=== PATIENT | female | born 2000 | race Caucasian/White ===

== ENCOUNTER 2018-08-29 13:32 | Emergency (ER) | payer MEDICAID, SELFPAY ==
--- NOTE | 2018-08-29 13:41 | W.ED.GENAD ---
Discharge Plan Disposition Patient Disposition: HOME Condition: Stable Discharge Details Chief Complaint: RashLesion Clinical Impression: Blister (nonthermal), right foot, initial encounter Reason For Visit: blister / open sore ED Provider: Ivy Ashford Home Meds and New Rx's Prescriptions: New ibuprofen 600 mg tablet 600 mg PO QID PRN (Reason: pain) Qty: 20 RF: 0 Continue clonidine HCl 0.1 mg Tablet 0.1 mg PO HS RF: 0 norethindrone-e.estradiol-iron [Junel FE 1.5/30 (28)] 1.5 mg-30 mcg (21)/75 mg (7) Tablet RF: 0 sertraline 100 mg Tablet 200 mg PO DAILY RF: 0 trazodone 100 mg Tablet 100 mg PO HS RF: 0 dextroamphetamine-amphetamine [Adderall] 20 mg Tablet 20 mg PO DAILY RF: 0 omeprazole 20 mg Capsule,Delayed Release(Dr/Ec) 20 mg PO DAILY RF: 0 Discharge Instructions Instructions: Blister (ED) Additional Instructions: Keep open area clean, dry, covered. Tylenol and/or Motrin as needed for discomfort. Monitor for signs of infection including redness, warmth, drainage, fevers/chills, increased pain. If these or other new/worsening symptoms arise please seek care urgently once again. If pain persists over the next week please follow up with primary care provider. Medical Decision Making Patient is a 18 year old female, accompanied by friend, with c/c of blister to the plantar aspect of the right foot. States that she sustained blister while in boots yesterday. States that this subsequently opened. She reports that she washed the open area with alcohol. Has bandaid over the area. States that since opening, the pain has increased, particularly when she is ambulatory. Is concerned for infection. She has noted small amount of clear discharge. Reports the pain radiates to surrounding tissues. Denies fevers/chills at home. On exam, she has a 5mm open area, consistent with open blister, on the ball of the right foot. No surrounding erythema, warmth, drainage. No signs of infection at this time. She appears nontoxic. Patient and I discussed wound care. She has an alternative pair of shoes to avoid futher irritation. Nursing staff again cleansed the wound and was able to use mole skin to bolster the area around the wound. We discussed sighs and symptoms of infection in detail and when to seek care urgently once again. Advised she try Tylenol and/or Motrin as needed for discomfort, this was given to her while here. Advised f/u with PCP in one week if not completely healed. All of her questions and concerns were addressed, she is in agreement with this plan. HPI General Mode of arrival: ambulatory. Date/Time Provider Initiated Documentation: 08/29/18 13:33. Limitations to Documentation: no limitations. Information obtained by: patient. History of Present Illness 18 year old F presents to the emergency department with the chief complaint of right foot blister, described as moderate, Quality is described as stabbing, and is localized to the right and lower extremity. Patient reports radiation to (reports that pain radiates around the area, particularly into the toes). Patient started experiencing this day(s) (1) and it has been constant. No relieving factors improve symptom(s), Movement worsens symptoms . Patient notes no other symptoms.; denies cough, fever/chills and weakness. Patient did receive the following treatments prior to arrival, none Related Data Home Medications Medication Instructions Recorded Confirmed clonidine HCl 0.1 mg PO HS 08/29/18 08/29/18 dextroamphetamine-amphetamine 20 mg PO DAILY 08/29/18 08/29/18 [Adderall] ibuprofen 600 mg PO QID PRN #20 tab 08/29/18 norethindrone-e.estradiol-iron 08/29/18 [ ()] omeprazole 20 mg PO DAILY 08/29/18 08/29/18 sertraline 200 mg PO DAILY 08/29/18 08/29/18 trazodone 100 mg PO HS 08/29/18 08/29/18 Previous Rx's Medication Instructions Recorded ibuprofen 600 mg PO QID PRN #20 tab 08/29/18 Allergies Allergy/AdvReac Type Severity Reaction Status Date / Time metoclopramide [From Reglan] AdvReac Unverified 08/29/18 13:46 Review of Systems Constitutional Reports as per HPI, Denies chills, Denies fever(s), Denies headache(s) and Denies weakness ENT Denies headache(s) Cardiovascular Reports as per HPI Respiratory Reports as per HPI and Denies cough Musculoskeletal Reports as per HPI, Reports abnormal gait (ambulating with antalgic gait), Denies numbness, Reports radiating pain into limb (pain from open area radiates into the adjacent toes) and Denies tingling Integumentary/Breasts Reports as per HPI, Denies rash and Reports wounds (patient has an open blister plantar aspect of right foot) Neurologic Reports abnormal gait (ambulating with antalgic gait), Denies headache(s), Denies numbness, Denies tingling and Denies weakness Exam Const General: cooperative, healthy appearing, comfortable, no acute distress, well developed and well groomed Nutritional Appearance: well nourished and overweight Orientation: alert and awake Resp Effort & Inspection: normal respiratory effort, able to speak in complete sentences and no respiratory distress Cardio Rate: regular rate Rhythm: regular rhythm Skin General skin exam: other (patient has an open 5mm area of skin on the plantar aspect of the foot. No surrounding erythema, warmth or drainage. No fluctuance. Consistent with open blister. No bleeding) Neuro General: alert and awake Cognition: normal cognition Speech: speech normal Gait: antalgic Motor: muscle tone normal throughout Sensory Exam: no sensory deficits noted Extrem General: abnormal to inspection (open blister as above) Psych Appearance: grossly normal and well kempt Mental Status: mental status grossly normal Speech and Movement: speech and movement normal
[2018-08-29 13:42] VITALS: BP 127/67; PULSE 92; RESP 16; TEMP 36.9; O2SAT 16
--- NOTE | 2018-08-29 13:52 | ED.GENADUL_ITS ---
Discharge Plan Disposition Patient Disposition: HOME Condition: Stable Discharge Details Chief Complaint: RashLesion Clinical Impression: Blister (nonthermal), right foot, initial encounter Reason For Visit: blister / open sore ED Provider: Ivy Ashford Home Meds and New Rx's Prescriptions: New ibuprofen 600 mg tablet 600 mg PO QID PRN (Reason: pain) Qty: 20 RF: 0 Continue clonidine HCl 0.1 mg Tablet 0.1 mg PO HS RF: 0 norethindrone-e.estradiol-iron [Junel FE 1.5/30 (28)] 1.5 mg-30 mcg (21)/75 mg (7) Tablet RF: 0 sertraline 100 mg Tablet 200 mg PO DAILY RF: 0 trazodone 100 mg Tablet 100 mg PO HS RF: 0 dextroamphetamine-amphetamine [Adderall] 20 mg Tablet 20 mg PO DAILY RF: 0 omeprazole 20 mg Capsule,Delayed Release(Dr/Ec) 20 mg PO DAILY RF: 0 Discharge Instructions Instructions: Blister (ED) Additional Instructions: Keep open area clean, dry, covered. Tylenol and/or Motrin as needed for discomfort. Monitor for signs of infection including redness, warmth, drainage , fevers/chills, increased pain. If these or other new/worsening symptoms arise please seek care urgently once again. If pain persists over the next week please follow up with primary care provider. Medical Decision Making Patient is a 18 year old female, accompanied by friend, with c/c of blister to the plantar aspect of the right foot. States that she sustained blister while in boots yesterday. States that this subsequently opened. She reports that she washed the open area with alcohol. Has bandaid over the area. States that since opening, the pain has increased, particularly when she is ambulatory. Is concerned for infection. She has noted small amount of clear discharge. Reports the pain radiates to surrounding tissues. Denies fevers/chills at home. On exam, she has a 5mm open area, consistent with open blister, on the ball of the right foot. No surrounding erythema, warmth, drainage. No signs of infection at this time. She appears nontoxic. Patient and I discussed wound care. She has an alternative pair of shoes to avoid futher irritation. Nursing staff again cleansed the wound and was able to use mole skin to bolster the area around the wound. We discussed sighs and symptoms of infection in detail and when to seek care urgently once again. Advised she try Tylenol and/or Motrin as needed for discomfort, this was given to her while here. Advised f/u with PCP in one week if not completely healed. All of her questions and concerns were addressed, she is in agreement with this plan. HPI General Mode of arrival: ambulatory . Date/Time Provider Initiated Documentation: 08/29/18 13:33 . Limitations to Documentation: no limitations . Information obtained by: patient . History of Present Illness 18 year old F presents to the emergency department with the chief complaint of right foot blister, described as moderate, Quality is described as stabbing , and is localized to the right and lower extremity. Patient reports radiation to (reports that pain radiates around the area, particularly into the toes). Patient started experiencing this day(s) (1) and it has been constant. No relieving factors improve symptom(s), Movement worsens symptoms . Patient notes no other symptoms.; denies cough, fever/chills and weakness. Patient did receive the following treatments prior to arrival, none Related Data Home Medications Medication Instructions Recorded Confirmed clonidine HCl 0.1 mg PO HS 08/29/18 08/29/18 dextroamphetamine-amphetamine 20 mg PO DAILY 08/29/18 08/29/18 [Adderall] ibuprofen 600 mg PO QID PRN #20 tab 08/29/18 norethindrone-e.estradiol-iron 08/29/18 [ ()] omeprazole 20 mg PO DAILY 08/29/18 08/29/18 sertraline 200 mg PO DAILY 08/29/18 08/29/18 trazodone 100 mg PO HS 08/29/18 08/29/18 Previous Rx's Medication Instructions Recorded ibuprofen 600 mg PO QID PRN #20 tab 08/29/18 Allergies Allergy/AdvReac Type Severity Reaction Status Date / Time metoclopramide [From Reglan] AdvReac Unverified 08/29/18 13:46 Review of Systems Constitutional Reports as per HPI, Denies chills, Denies fever(s), Denies headache(s) and Denies weakness ENT Denies headache(s) Cardiovascular Reports as per HPI Respiratory Reports as per HPI and Denies cough Musculoskeletal Reports as per HPI, Reports abnormal gait (ambulating with antalgic gait), Denies numbness, Reports radiating pain into limb (pain from open area radiates into the adjacent toes) and Denies tingling Integumentary/Breasts Reports as per HPI, Denies rash and Reports wounds (patient has an open blister plantar aspect of right foot) Neurologic Reports abnormal gait (ambulating with antalgic gait), Denies headache(s), Denies numbness, Denies tingling and Denies weakness Exam Const General: cooperative, healthy appearing, comfortable, no acute distress, well developed and well groomed Nutritional Appearance: well nourished and overweight Orientation: alert and awake Resp Effort & Inspection: normal respiratory effort, able to speak in complete sentences and no respiratory distress Cardio Rate: regular rate Rhythm: regular rhythm Skin General skin exam: other (patient has an open 5mm area of skin on the plantar aspect of the foot. No surrounding erythema, warmth or drainage. No fluctuance. Consistent with open blister. No bleeding) Neuro General: alert and awake Cognition: normal cognition Speech: speech normal Gait: antalgic Motor: muscle tone normal throughout Sensory Exam: no sensory deficits noted Extrem General: abnormal to inspection (open blister as above) Psych Appearance: grossly normal and well kempt Mental Status: mental status grossly normal Speech and Movement: speech and movement normal
[2018-08-29] MEDS: Acetaminophen 500 MG TAB 1000 MG PO (14:04)
[2018-08-29] MEDS: Ibuprofen 600 MG TAB PO (14:04)
== END 2018-08-29 14:04 | disposition home or self-care (01) ==
PROVIDERS: Emergency Provider Physician Assistant
DX: S90.821A Blister (nonthermal), right foot, initial encounter (principal); X50.1XXA Overexertion from prolonged static or awkward postures, initial encounter
CPT/HCPCS: 99282

== ENCOUNTER 2018-10-27 20:56 | Emergency (ER) | payer MEDICAID, SELFPAY ==
[2018-10-28 10:18] LABS: HGB 14.4 g/dL (12.0-15.5); RBC 4.91 m/cumm (4.00-5.20); White Blood Cell Count 7.62 k/cumm (4.4-10.8)
[2018-10-28 10:19] LABS: Abs Immature Grans 0.01 k/cumm (0.0-0.09); Absolute Basophil Count 0.01 k/cumm (0.0-0.2); Absolute Lymphocyte Count 2.77 k/cumm (1.2-3.4); Absolute Monocyte Count 0.52 k/cumm (0.11-0.7); Absolute Neutrophil Count 4.21 k/cumm (1.2-6.7); Basophils % 0.1; Eosinophils % 1.3; Lymphocytes % 36.4; Mean Corp. HGB Concentration 33.5 g/dL (32.0-36.0); Mean Corpuscular Hemoglobin 29.3 pg (27.0-33.0); Mean Corpuscular Volume 87.6 fL (80-95); Mean Platelet Volume 10.1 fL (8.0-11.0); Monocytes % 6.8; Neutrophils % 55.3; Platelet Count 342 x1000/uL (130-400); RBC Distribution Width 13.4 % (11.7-14.6)
[2018-10-28 10:20] LABS: ALT 49 U/L (12-78); AST 25 U/L (15-37); Albumin 3.5 g/dL (3.4-5.0); Alkaline Phosphatase 98 U/L (46-116); Anion Gap 9.5 mmol/L (3-11); BUN 10 mg/dL (7-18); Bilirubin, Total 0.2 mg/dL (0.2-1.0); CO2 29.5 mmol/L (21.0-32.0); CREATININE 0.78 mg/dL (0.55-1.02); Calcium 9.2 mg/dL (8.5-10.1); Chloride 105 mmol/L (98-107); Glucose 77 mg/dL (70-100); Potassium 3.7 mmol/L (3.5-5.1); Sodium 144 mmol/L (136-145); Total Protein 7.6 g/dL (6.4-8.2)
--- NOTE | 2018-10-28 10:39 | PDOC.ERCMPRO ---
Care Management Progress Note 10/28-Dr. Agosto requested assistance with a [facility] f/u for dysfunctional uterine bleeding. Referral faxed to [facility] this am.
== END 2018-10-27 23:26 ==
PROVIDERS: Student in an Organized Health Care Education/Training Program; Emergency Provider Emergency Medicine; PCP Nurse Practitioner Family
DX: N93.8 Other specified abnormal uterine and vaginal bleeding (principal); R55 Syncope and collapse
CPT/HCPCS: 36415; 80053; 86850; 86900; 86901; 93005; 96374; 99284; 85025; 93010

== ENCOUNTER 2018-10-29 15:07 | Outpatient (CLI) | payer MEDICAID, SELFPAY ==
[2018-10-29 17:20] LABS: TSH (W/Ref FT4) 1.16 uIU/mL (0.358-3.74)
[2018-10-30 10:01] LABS: Prolactin 4.2 ng/ml
== END 2018-10-29 15:27 ==
PROVIDERS: PCP Nurse Practitioner Family; Visit Provider Obstetrics & Gynecology
DX: N92.0 Excessive and frequent menstruation with regular cycle (principal)
CPT/HCPCS: 36415; 84146; 84443

== ENCOUNTER 2021-10-01 00:55 | Outpatient (CLI) | payer OTHER, SELFPAY ==
--- NOTE | 2021-10-01 11:10 | DI.RAD_ITS ---
Exam(s) XR LUMBAR SPINE AP, LAT EXAM: XR LUMBAR SPINE AP, LAT CLINICAL HISTORY: LOW BACK PAIN, SCIATICA, DISABILITY DETERMINATION. TECHNIQUE: 2D digital imaging was performed. COMPARISON: No exams were available for comparison FINDINGS: BONES: No fracture or destructive lesion. Vertebral bodies are unremarkable. No facet hypertrophy shubham ntified. DISKS: Intervertebral disc spaces are maintained. ALIGNMENT: Lumbar spinal alignment is within normal limits. SOFT TISSUE: Normal. IMPRESSION: Unremarkable radiographs of the lumbar spine. DATA REPOSITORY: RADIATION DOSE DELIVERED:
== END 2021-10-01 01:15 ==
PROVIDERS: PCP Nurse Practitioner Family; Visit Provider Pediatrics Pediatric Rheumatology
DX: M54.40 Lumbago with sciatica, unspecified side (principal); Z02.71 Encounter for disability determination
CPT/HCPCS: 72100